=== PATIENT | female | born 1940 | race Native Hawaiian/Other Pacific Islander ===

== ENCOUNTER 2019-03-09 10:58 | Outpatient (CLI) | payer OTHER, MEDICARE | END 2019-03-09 22:04 | disposition home or self-care (01) | LOC: US 10:58 | DX: G89.4 Chronic pain syndrome (principal); F41.8 Other specified anxiety disorders; R42 Dizziness and giddiness; H66.90 Otitis media, unspecified, unspecified ear | CPT/HCPCS: 93005 ==

== ENCOUNTER 2019-03-11 10:18 | Outpatient (CLI) | payer OTHER, MEDICARE ==
[2019-03-11 10:35] LABS: PLATELET COUNT 228 K/uL (152-353)
[2019-03-11 10:57] LABS: POTASSIUM 3.7 mmol/L (3.6-5.2)
== END 2019-03-11 22:58 | disposition home or self-care (01) ==
LOC: LABW 10:18
PROVIDERS: Family Medicine
DX: E11.9 Type 2 diabetes mellitus without complications (principal); I10 Essential (primary) hypertension; R42 Dizziness and giddiness; E78.49 Other hyperlipidemia; F41.8 Other specified anxiety disorders; E55.9 Vitamin D deficiency, unspecified; G62.89 Other specified polyneuropathies; E53.8 Deficiency of other specified B group vitamins; K21.9 Gastro-esophageal reflux disease without esophagitis; R82.998 Other abnormal findings in urine
CPT/HCPCS: 36415; 80053; 80061; 81000; 82306; 82607; 83036; 83735; 84439; 84443; 85027; 87077; 87086; 87088; 87185

== ENCOUNTER 2019-04-07 07:56 | Outpatient (CLI) | payer OTHER, MEDICARE | END 2019-04-07 20:30 | disposition home or self-care (01) | LOC: NM 07:56 | DX: R94.31 Abnormal electrocardiogram [ECG] [EKG] (principal); R01.2 Other cardiac sounds; R42 Dizziness and giddiness; R07.89 Other chest pain; I10 Essential (primary) hypertension | CPT/HCPCS: 93306; A9500 ==

== ENCOUNTER 2019-04-09 09:10 | Outpatient (CLI) | payer OTHER, MEDICARE ==
[2019-04-09 09:37] LABS: PLATELET COUNT 234 K/uL (152-353)
== END 2019-04-09 20:41 | disposition home or self-care (01) ==
LOC: LABW 09:10
PROVIDERS: Family Medicine
DX: R21 Rash and other nonspecific skin eruption (principal); R23.3 Spontaneous ecchymoses
CPT/HCPCS: 36415; 85027

== ENCOUNTER 2019-05-18 12:14 | Outpatient (CLI) | payer OTHER, MEDICARE | END 2019-05-18 23:09 | disposition home or self-care (01) | LOC: RESP 12:14 | DX: R94.31 Abnormal electrocardiogram [ECG] [EKG] (principal); R01.2 Other cardiac sounds; R42 Dizziness and giddiness; R07.89 Other chest pain; I10 Essential (primary) hypertension | CPT/HCPCS: 93225 ==

== ENCOUNTER 2020-06-24 08:37 | Outpatient (CLI) | payer OTHER, MEDICARE ==
[2020-06-24 09:32] LABS: PLATELET COUNT 254 K/uL (152-353)
== END 2020-06-24 19:34 | disposition home or self-care (01) ==
LOC: RAD 08:37
PROVIDERS: ATTEND Family Medicine
DX: R06.02 Shortness of breath (principal); M54.5 Low back pain; R53.83 Other fatigue; F32.9 Major depressive disorder, single episode, unspecified; F41.8 Other specified anxiety disorders; Z79.899 Other long term (current) drug therapy; E78.49 Other hyperlipidemia; I10 Essential (primary) hypertension; E55.9 Vitamin D deficiency, unspecified; K21.9 Gastro-esophageal reflux disease without esophagitis
CPT/HCPCS: 36415; 80053; 80061; 81000; 82306; 83735; 84439; 84443; 85027; 93005

== ENCOUNTER 2020-08-17 12:11 | Outpatient (CLI) | payer OTHER, MEDICARE | END 2020-08-17 22:15 | disposition home or self-care (01) | LOC: RAD 12:11 | PROVIDERS: ATTEND Family Medicine | DX: M25.552 Pain in left hip (principal); M25.551 Pain in right hip; M25.561 Pain in right knee; W19.XXXA Unspecified fall, initial encounter ==

== ENCOUNTER 2020-08-20 09:32 | Emergency (ER) | payer OTHER, MEDICARE ==
[~2020-08-20] VITALS: Ht 160 cm; Wt 54.4 kg
[2020-08-20 09:40] VITALS: TEMP 98.2
[2020-08-20 10:26] LABS: PLATELET COUNT 254 K/uL (152-353)
[2020-08-20 10:31] LABS: POTASSIUM 3.5 mmol/L (3.6-5.2); SODIUM 139 mmol/L (136-145)
[2020-08-20 11:59] VITALS: BP 143/50
== END 2020-08-20 12:54 | disposition home or self-care (01) ==
LOC: ED 09:32
PROVIDERS: Emergency Medicine Emergency Medical Services
DX: K52.89 Other specified noninfective gastroenteritis and colitis (principal); F45.8 Other somatoform disorders; Z20.828 Contact with and (suspected) exposure to other viral communicable diseases
CPT/HCPCS: 36415; 36600; 80053; 81000; 82150; 82805; 83605; 83690; 84484; 85027; 87635; 93005; 96360; 96374; 96375; 96376; 99284; J2060; J2405; U0003

== ENCOUNTER 2020-11-10 17:33 | Emergency (ER) | payer OTHER, MEDICARE ==
[~2020-11-10] VITALS: Ht 157.5 cm; Wt 59.0 kg
[2020-11-10 18:36] LABS: PLATELET COUNT 234 K/uL (152-353)
[2020-11-10 18:49] LABS: POTASSIUM 3.7 mmol/L (3.6-5.2)
[2020-11-10 19:02] LABS: PARTIAL THROMBOPLASTIN TIME 21.1 SECONDS (24.5-33.6)
[2020-11-10 21:02] VITALS: BP 148/73; TEMP 98.3
== END 2020-11-10 21:02 | disposition home or self-care (01) ==
LOC: ED 17:33
PROVIDERS: Hospitalist
DX: R10.13 Epigastric pain (principal); K44.9 Diaphragmatic hernia without obstruction or gangrene; R11.2 Nausea with vomiting, unspecified
CPT/HCPCS: 80053; 80320; 82150; 83690; 85027; 85610; 85730; 96360; 96361; 96375; 99284; J1885; J2405

== ENCOUNTER 2021-02-01 16:49 | Outpatient (CLI) | payer OTHER, MEDICARE | END 2021-02-01 23:00 | disposition home or self-care (01) | LOC: LABW 16:49 | PROVIDERS: ATTEND Family Medicine | DX: N39.0 Urinary tract infection, site not specified (principal) | CPT/HCPCS: 81000; 87088 ==

== ENCOUNTER 2021-02-09 09:43 | Outpatient (CLI) | payer OTHER, MEDICARE ==
[2021-02-09 10:44] LABS: PLATELET COUNT 258 K/uL (152-353)
[2021-02-09 11:52] LABS: POTASSIUM 3.8 mmol/L (3.6-5.2)
== END 2021-02-09 19:09 | disposition home or self-care (01) ==
LOC: LABW 09:43
PROVIDERS: ATTEND Family Medicine
DX: R10.84 Generalized abdominal pain (principal); R11.2 Nausea with vomiting, unspecified; E11.9 Type 2 diabetes mellitus without complications
CPT/HCPCS: 36415; 80053; 83036; 84439; 84443; 85027

== ENCOUNTER 2021-02-14 09:00 | Outpatient (CLI) | payer OTHER, MEDICARE | END 2021-02-14 19:02 | disposition home or self-care (01) | LOC: LABW 09:00 → US 09:00 | PROVIDERS: ATTEND Family Medicine | DX: R07.89 Other chest pain (principal); R42 Dizziness and giddiness; R53.83 Other fatigue | CPT/HCPCS: 36415; 82550; 82553; 84484 ==

== ENCOUNTER 2021-07-19 13:01 | Outpatient (CLI) | payer OTHER, MEDICARE ==
[~2021-07-19] VITALS: Ht 157.5 cm; Wt 53.1 kg
== END 2021-07-19 19:35 | disposition home or self-care (01) ==
LOC: INF 13:01
PROVIDERS: ATTEND Internal Medicine
DX: M81.0 Age-related osteoporosis without current pathological fracture (principal)
CPT/HCPCS: 36415; 82310; 96372; J0897

== ENCOUNTER → 2021-09-20 | Emergency (ER) | payer OTHER, MEDICARE ==
[~2021-09-20] VITALS: Ht 157.5 cm; Wt 50.3 kg
[2021-09-20 19:37] VITALS: TEMP 97.9
[2021-09-20 20:32] LABS: PLATELET COUNT 214 K/uL (152-353)
[2021-09-20 20:33] LABS: POTASSIUM 3.8 mmol/L (3.6-5.2)
[2021-09-20 20:44] LABS: PARTIAL THROMBOPLASTIN TIME 19.2 SECONDS (24.5-33.6)
[2021-09-20 22:05] VITALS: BP 199/63
== END ==
LOC: ED 19:32
PROVIDERS: Hospitalist
DX: R42 Dizziness and giddiness (principal); G44.209 Tension-type headache, unspecified, not intractable; I16.0 Hypertensive urgency; F17.210 Nicotine dependence, cigarettes, uncomplicated; R29.6 Repeated falls
CPT/HCPCS: 36415; 80053; 80320; 82550; 83880; 84484; 85027; 85610; 85730; 93005; 96360; 96365; 96374; 96375; 99284; J0360; J1885

== ENCOUNTER 2021-09-28 12:50 | Outpatient (CLI) | payer OTHER, MEDICARE | END 2021-09-28 22:09 | disposition home or self-care (01) | LOC: MAMMO 12:50 | PROVIDERS: ATTEND Family Medicine | DX: Z12.31 Encounter for screening mammogram for malignant neoplasm of breast (principal); Z98.82 Breast implant status | CPT/HCPCS: G0279 ==

== ENCOUNTER 2021-10-12 16:26 | Outpatient (CLI) | payer OTHER, MEDICARE | END 2021-10-12 19:07 | disposition home or self-care (01) | LOC: RAD 16:26 | PROVIDERS: ATTEND Family Medicine | DX: R05.8 Other specified cough (principal) ==

== ENCOUNTER 2022-03-27 12:04 | Outpatient (CLI) | payer OTHER, MEDICARE | END 2022-03-27 18:57 | disposition home or self-care (01) | LOC: RAD 12:04 | PROVIDERS: ATTEND Family Medicine | DX: Z01.818 Encounter for other preprocedural examination (principal); I10 Essential (primary) hypertension; R05.9 Cough, unspecified | CPT/HCPCS: 93005 ==

== ENCOUNTER 2022-04-06 10:59 | Inpatient (IN) | payer OTHER, MEDICARE ==
[~2022-04-06] VITALS: Ht 157.5 cm; Wt 59.0 kg
[2022-04-06 11:05] VITALS: BP 165/54; TEMP 97
[2022-04-06 11:59] LABS: PLATELET COUNT 163 K/uL (152-353)
[2022-04-06 12:06] LABS: POTASSIUM 2.6 mmol/L (3.6-5.2)
[2022-04-06] MEDS ORDERED: ASPIRIN/ENTERIC81 MG PO (16:30)
[2022-04-06] MEDS ORDERED: LYRICA 100 MG100 MG PO (16:31)
[2022-04-06] MEDS ORDERED: LISI10TA11 PO (16:31)
[2022-04-06] MEDS ORDERED: TYLENOL PO (16:31)
[2022-04-06] MEDS ORDERED: LIPITOR40 MG PO (16:32)
[2022-04-06] MEDS ORDERED: SERT100T PO (16:32)
[2022-04-06] MEDS ORDERED: HYDRALAZINE25 MG PO (16:32)
[2022-04-06] MEDS ORDERED: ALPR0.5T24 PO (16:33)
[2022-04-06] MEDS ORDERED: MOBIC15 MG PO (16:34)
[2022-04-06] MEDS ORDERED: DONE5TAB PO (16:34)
[2022-04-06] MEDS ORDERED: TEMA15CA19 PO (16:34)
[2022-04-06] MEDS ORDERED: PANTOPRAZOLE 40MG TA PO (16:35)
[2022-04-06] MEDS ORDERED: OXYCODONE HYDRO10 MG PO (16:36)
[2022-04-06 18:14] VITALS: BP 122/71; TEMP 97.7; Ht 157.5 cm; Wt 59.0 kg
[2022-04-06 20:00] VITALS: BP 166/65; TEMP 98.5
[2022-04-07 00:18] VITALS: BP 131/45; TEMP 98.2
[2022-04-07 04:00] VITALS: BP 124/43; TEMP 97.8
[2022-04-07 05:12] LABS: PLATELET COUNT 135 K/uL (152-353)
[2022-04-07 06:03] LABS: POTASSIUM 3.9 mmol/L (3.6-5.2)
[2022-04-07 08:00] VITALS: BP 140/48; TEMP 97.7
[2022-04-07 12:00] VITALS: BP 149/52; TEMP 97.7
[2022-04-07 16:00] VITALS: BP 157/43; TEMP 97.5
[2022-04-07 19:45] VITALS: BP 200/55; TEMP 99.5
[2022-04-08 00:10] VITALS: BP 151/58; TEMP 98.1
[2022-04-08 04:19] VITALS: BP 157/55; TEMP 97.8
[2022-04-08 05:41] LABS: PLATELET COUNT 143 K/uL (152-353)
[2022-04-08 05:47] LABS: POTASSIUM 3.9 mmol/L (3.6-5.2)
[2022-04-08 08:00] VITALS: BP 172/41; TEMP 97.7
[2022-04-08 12:00] VITALS: BP 191/62; TEMP 97.9
[2022-04-08 16:00] VITALS: BP 178/55; TEMP 98.1
[2022-04-08 19:51] VITALS: BP 184/61; TEMP 98.7
[2022-04-09] VITALS (8 sets, daily range): BP systolic 98–184; BP diastolic 44–60; TEMP 97.4–98.1
[2022-04-09 13:49] LABS: PLATELET COUNT 172 K/uL (152-353)
[2022-04-09 13:56] LABS: POTASSIUM 3.8 mmol/L (3.6-5.2)
[2022-04-09] MEDS ORDERED: MAGN400T4 PO (17:35)
[2022-04-09] MEDS ORDERED: CEPH500C20 PO (17:49)
[2022-04-10 04:00] VITALS: BP 178/56; TEMP 97.9
[2022-04-10 08:10] VITALS: BP 171/62; TEMP 97.6
== END 2022-04-10 10:40 | disposition home or self-care (01) | DRG 603 ==
LOC: ED 10:59 → MED/SURG 13:23
PROVIDERS: Family Medicine; ADMIT Internal Medicine; ATTEND Internal Medicine
DX: L03.113 Cellulitis of right upper limb (principal); F03.94 Unspecified dementia, unspecified severity, with anxiety; E83.42 Hypomagnesemia; E87.6 Hypokalemia; I10 Essential (primary) hypertension; K21.9 Gastro-esophageal reflux disease without esophagitis; G89.4 Chronic pain syndrome; M79.7 Fibromyalgia
CPT/HCPCS: 36415; 80048; 80053; 80202; 81002; 83735; 84550; 85027; 85379; 87040; 87635; 96360; 96365; 96366; 96367; 99284; J2543; J3370; J3475; J3480; U0003

== ENCOUNTER 2022-05-08 11:19 | Outpatient (CLI) | payer OTHER, MEDICARE ==
[~2022-05-08 11:19] MED LIST: ALPR0.5T24 PO; ASPIRIN/ENTERIC81 MG PO; CEPH500C20 PO; DONE5TAB PO; HYDRALAZINE25 MG PO; LIPITOR40 MG PO; LISI10TA11 PO; LYRICA 100 MG100 MG PO; MAGN400T4 PO; MOBIC15 MG PO; OXYCODONE HYDRO10 MG PO; PANTOPRAZOLE 40MG TA PO; SERT100T PO; TEMA15CA19 PO; TYLENOL PO
== END 2022-05-08 19:38 | disposition home or self-care (01) ==
LOC: LABW 11:19
PROVIDERS: ATTEND Nurse Practitioner Family
DX: L65.9 Nonscarring hair loss, unspecified (principal); Z79.899 Other long term (current) drug therapy; R53.83 Other fatigue; E55.9 Vitamin D deficiency, unspecified
CPT/HCPCS: 36415; 82306; 82626; 82728; 83540; 83550; 84270; 84402; 84403; 84436; 84439; 84443; 84591; 86038; 86376; 86800

== ENCOUNTER 2023-03-05 14:18 | Outpatient (CLI) | payer OTHER, MEDICARE | END 2023-03-05 20:24 | disposition home or self-care (01) | LOC: MRI 14:18 | PROVIDERS: ATTEND Nurse Practitioner | DX: M48.062 Spinal stenosis, lumbar region with neurogenic claudication (principal) ==